=== PATIENT | female | born 1935 | race Caucasian/White ===

== ENCOUNTER 2017-08-03 09:17 | Emergency (ER) | payer MEDICARE, OTHER ==
[2017-08-03] MEDS ORDERED: Sodium Chloride 0.9% 1,000 ML IV SCH (11:00)
--- NOTE | 2017-08-03 11:00 | EDM.PDOC ---
ED HPI GENERAL MEDICAL PROBLEM - General Chief Complaint: General Stated Complaint: DIZZY AND NAUSA Time Seen by Provider: 08/03/17 10:58 Source of Information: Reports: Patient History Limitations: Reports: No Limitations - History of Present Illness INITIAL COMMENTS - FREE TEXT/NARRATIVE: pt had a tick bite several days ago. She now feels off balance and has for several days. Onset: Gradual, Other (past several days. ) Duration: Hour(s): Location: Reports: Other ( tingling and burning in her feet) Associated Symptoms: Reports: Nausea/Vomiting denies Pain Score (Numeric/FACES): 0 - Related Data Allergies Allergy/AdvReac Type Severity Reaction Status Date / Time No Known Allergies Allergy Verified 08/03/17 11:12 Home Meds: Home Meds Aspirin [Adult Aspirin] 81 mg PO DAILY 08/03/17 [History] Doxycycline [Doxycycline Hyclate] 100 mg PO BID 08/03/17 [History] Ivermectin [Soolantra] 1 drop TOP DAILY 08/03/17 [History] Latanoprost 1 drop TOP DAILY 08/03/17 [History] Timolol [Betimol 0.5% Ophth Soln] 1 drop TOP DAILY 08/03/17 [History] predniSONE [Prednisone] 2 mg PO BID 08/03/17 [History] Past Medical History Cardiovascular History: Reports: High Cholesterol, Hypertension MANAGER TALENT ACQUISITION History: Reports: Musculoskeletal History: Reports: Arthritis Psychiatric History: Reports: Anxiety Dermatologic History: Reports: Other (See Below) Other Dermatologic History: roseca - Infectious Disease History Infectious Disease History: Reports: Chicken Pox, Measles, Mumps, Shingles - Past Surgical History HEENT Surgical History: Reports: Cataract Surgery GI Surgical History: Reports: Appendectomy, Cholecystectomy, Colonoscopy Social & Family History - Tobacco Use Smoking Status *Q: Never Smoker Second Hand Smoke Exposure: No - Caffeine Use Caffeine Use: Reports: Coffee, Soda, Tea - Recreational Drug Use Recreational Drug Use: No ED ROS GENERAL - Review of Systems Review Of Systems: See Below Constitutional: Reports: Weakness, Other (PT IS NAUSATED AND SHE FEELS OFF BLANCE. sHE HAD A TICK BITE SEVERAL DAYS AGO AND SHE HAS REGINALD ON DOXYCLINE. sHE FEELS SOME OF HER SYMPTOMS MAY BE FROM THE ANTIBIOTIC. ) HEENT: Reports: No Symptoms Respiratory: Reports: No Symptoms Cardiovascular: Reports: No Symptoms Endocrine: Reports: No Symptoms GI/Abdominal: Reports: No Symptoms : Reports: No Symptoms Musculoskeletal: Reports: Hand Pain Skin: Reports: No Symptoms Neurological: Reports: Other (PT IS OFF BALANCE. sHE FEELS LIKE SHE COULD FALL. sHE DOES NOT HAVE A HEADACHE OR ANY VISUAL SYMPTOMS. ) Psychiatric: Reports: Anxiety Hematologic/Lymphatic: Reports: No Symptoms ED EXAM, GENERAL - Physical Exam Exam: See Below Free Text/Narrative:: PT ARRIVED FEELING OFF BALANCE. sHE DID HAVE A TICK BITE SEVERAL DAYS AGO. Exam Limited By: No Limitations General Appearance: Alert, Anxious, Mild Distress, Other (PUPILS EQUAL AND RECTIVE. ) Eye Exam: Right Eye: Papilledema Ears: Normal TMs Nose: Normal Inspection Throat/Mouth: Normal Inspection Head: Atraumatic Neck: Normal Inspection Respiratory/Chest: No Respiratory Distress, Other (PT DOES HAVE A TICK BITE IN THE RT LATERAL CHEST AREA. ) Cardiovascular: Regular Rate, Rhythm GI/Abdominal: Soft, Non-Tender (Female) Exam: Deferred Rectal (Female) Exam: Deferred Back Exam: Normal Inspection Extremities: Normal Inspection Neurological: Alert, Oriented, Normal Cognition Psychiatric: Normal Affect Course - Vital Signs Last Recorded V/S: Last Vital Signs Temp 35.8 C 08/03/17 10:10 Pulse 74 08/03/17 11:51 Resp 16 08/03/17 11:51 BP 204/100 H 08/03/17 11:51 Pulse Ox 97 08/03/17 11:51 - Orders/Labs/Meds Orders: Active Orders 24 hr Category Date Time Status Head wo Cont [CT] Stat Exams 08/03/17 11:38 Ordered BABESIA MICROTI ANTIBODY PANEL Stat Lab 08/03/17 11:06 Received E. CHAFFEENSIS-HME (MONOCYTIC) Stat Lab 08/03/17 11:06 Received UA W/MICROSCOPIC [URIN] Urgent Lab 08/03/17 10:52 Ordered Sodium Chloride 0.9% [Normal Saline] 1,000 ml Med 08/03/17 11:00 Active IV ASDIRECTED Medication Orders Sodium Chloride (Normal Saline) 1,000 mls @ 999 mls/hr IV ASDIRECTED LEONIE Last Admin: 08/03/17 11:21 Dose: 999 mls/hr Labs: Laboratory Tests 05/29/18 05/29/18 05/29/18 Range/Units 10:52 11:06 11:06 WBC 7.6 (4.5-11.0) K/uL RBC 4.76 (3.30-5.50) M/uL Hgb 13.3 (12.0-15.0) g/dL Hct 40.7 (36.0-48.0) % MCV 86 (80-98) fL MCH 28 (27-31) pg MCHC 33 (32-36) % Plt Count 239 (150-400) K/uL Neut % (Auto) 70 H (36-66) % Lymph % (Auto) 19 L (24-44) % Wilkin % (Auto) 9 H (2-6) % Eos % (Auto) 1 L (2-4) % Baso % (Auto) 0 (0-1) % Sodium (140-148) mmol/L Potassium (3.6-5.2) mmol/L Chloride (100-108) mmol/L Carbon Dioxide (21-32) mmol/L Anion Gap (5.0-14.0) mmol/L BUN (7-18) mg/dL Creatinine (0.6-1.0) mg/dL Est Cr Clr Drug Dosing mL/min Estimated GFR (MDRD) (>60) Glucose (74-106) mg/dL Calcium (8.5-10.1) mg/dL Total Bilirubin (0.2-1.0) mg/dL AST (15-37) U/L ALT (12-78) U/L Alkaline Phosphatase (46-116) U/L C-Reactive Protein 0.86 H (0.0-0.3) mg/dL Total Protein (6.4-8.2) g/dL Albumin (3.4-5.0) g/dL Globulin (2.3-3.5) g/dL Albumin/Globulin Ratio (1.2-2.2) Urine Color Yellow Urine Appearance Clear Urine pH 5.0 (4.5-8.0) Ur Specific Orchard 1.010 (1.008-1.030) Urine Protein Negative (NEGATIVE) mg/dL Urine Glucose (UA) Normal (NEGATIVE) mg/dL Urine Ketones Negative (NEGATIVE) mg/dL Urine Occult Blood Negative (NEGATIVE) Urine Nitrite Negative (NEGATIVE) Urine Bilirubin Negative (NEGATIVE) Urine Urobilinogen Normal (NORMAL) mg/dL Ur Leukocyte Esterase Negative (NEGATIVE) Urine RBC Not seen (0-5) Urine WBC Not seen (0-5) Ur Epithelial Cells Few Amorphous Sediment Not seen Urine Bacteria Not seen Urine Mucus Few 08/03/17 Range/Units 11:06 WBC (4.5-11.0) K/uL RBC (3.30-5.50) M/uL Hgb (12.0-15.0) g/dL Hct (36.0-48.0) % MCV (80-98) fL MCH (27-31) pg MCHC (32-36) % Plt Count (150-400) K/uL Neut % (Auto) (36-66) % Lymph % (Auto) (24-44) % Wilkin % (Auto) (2-6) % Eos % (Auto) (2-4) % Baso % (Auto) (0-1) % Sodium 142 (140-148) mmol/L Potassium 4.3 (3.6-5.2) mmol/L Chloride 107 (100-108) mmol/L Carbon Dioxide 27 (21-32) mmol/L Anion Gap 8.5 (5.0-14.0) mmol/L BUN 12 (7-18) mg/dL Creatinine 0.7 (0.6-1.0) mg/dL Est Cr Clr Drug Dosing 54.79 mL/min Estimated GFR (MDRD) > 60 (>60) Glucose 98 (74-106) mg/dL Calcium 8.6 (8.5-10.1) mg/dL Total Bilirubin 0.4 (0.2-1.0) mg/dL AST 37 (15-37) U/L ALT 65 (12-78) U/L Alkaline Phosphatase 62 (46-116) U/L C-Reactive Protein (0.0-0.3) mg/dL Total Protein 6.8 (6.4-8.2) g/dL Albumin 3.4 (3.4-5.0) g/dL Globulin 3.4 (2.3-3.5) g/dL Albumin/Globulin Ratio 1.0 L (1.2-2.2) Urine Color Urine Appearance Urine pH (4.5-8.0) Ur Specific Orchard (1.008-1.030) Urine Protein (NEGATIVE) mg/dL Urine Glucose (UA) (NEGATIVE) mg/dL Urine Ketones (NEGATIVE) mg/dL Urine Occult Blood (NEGATIVE) Urine Nitrite (NEGATIVE) Urine Bilirubin (NEGATIVE) Urine Urobilinogen (NORMAL) mg/dL Ur Leukocyte Esterase (NEGATIVE) Urine RBC (0-5) Urine WBC (0-5) Ur Epithelial Cells Amorphous Sediment Urine Bacteria Urine Mucus Meds: Medications Generic Name Dose Route Start Last Admin Trade Name Freq PRN Reason Stop Dose Admin Sodium Chloride 1,000 mls @ 999 mls/hr 08/03/17 11:00 08/03/17 11:21 Normal Saline IV 999 mls/hr ASDIRECTED LEONIE Administration Departure - Departure Time of Disposition: 13:05 Disposition: Home, Self-Care 01 Condition: Fair Clinical Impression: Tick bite of chest wall, Dizziness, Dehydration - Discharge Information Referrals: PCP,None [Primary Care Provider] - Forms: ED Department Discharge Care Plan Goals: PUSH FLUIDS, STOP DOXYCLINE, AMOXICILLIN 500MG TID FOR 2 WEEKS, WILL NOTIFY OF THE TICK STUDES, . iF PERSISTENT SYMPTOMS SEE PRIMARY CARE PERSON [place] , SEND LABS AND CAT SCN REPORT WITH HER. ANTIVERT 25 MG TID FOR 2 DAYS AND PRN. - My Orders Last 24 Hours: My Active Orders 08/03/17 10:52 UA W/MICROSCOPIC [URIN] Urgent 08/03/17 11:00 Sodium Chloride 0.9% [Normal Saline] 1,000 ml IV ASDIRECTED 08/03/17 11:06 BABESIA MICROTI ANTIBODY PANEL Stat E. CHAFFEENSIS-HME (MONOCYTIC) Stat 08/03/17 11:38 Head wo Cont [CT] Stat - Assessment/Plan Last 24 Hours: My Active Orders 08/03/17 10:52 UA W/MICROSCOPIC [URIN] Urgent 08/03/17 11:00 Sodium Chloride 0.9% [Normal Saline] 1,000 ml IV ASDIRECTED 08/03/17 11:06 BABESIA MICROTI ANTIBODY PANEL Stat E. CHAFFEENSIS-HME (MONOCYTIC) Stat 08/03/17 11:38 Head wo Cont [CT] Stat
--- NOTE | 2017-08-03 13:40 | CT ---
CT head without contrast. Technique:Technique: Auto dosage reduction and iterative reconstruction techniques employed. Findings: No hemorrhage. Age-appropriate global atrophy. No subacute territorial infarct. Vascular ca lcifications. Calvarium intact. Mastoid air cells are clear. Impression: 1. No acute intracranial process by CT.
[2017-08-06 15:15] LABS: E. CHAFFEENSIS (HME) IGG TITER Negative (Neg:<1:64); E. CHAFFEENSIS (HME) IGM TITER Negative (Neg:<1:20)
[2017-08-06 17:11] LABS: BABESIA MICROTI IGG <1:10 (Neg:<1:10); BABESIA MICROTI IGM <1:10 (Neg:<1:10)
== END 2017-08-03 13:50 | disposition home or self-care (01) ==
LOC: JP.ED 09:17
DX: S20.361A Insect bite (nonvenomous) of right front wall of thorax, initial encounter (principal); E86.0 Dehydration; I10 Essential (primary) hypertension; E78.00 Pure hypercholesterolemia, unspecified; M19.90 Unspecified osteoarthritis, unspecified site; Z79.82 Long term (current) use of aspirin; Z79.899 Other long term (current) drug therapy; W57.XXXA Bitten or stung by nonvenomous insect and other nonvenomous arthropods, initial encounter
CPT/HCPCS: 36415; 70450; 80053; 81001; 85025; 86140; 86666; 86753; 96360; 99284; J7030